=== PATIENT | male | born 1985 | race Hispanic/Latino ===

== ENCOUNTER 2019-12-09 04:37 | Emergency (ER) | payer OTHER ==
[~2019-12-09] VITALS: Ht 177.8 cm; Wt 124.7 kg
--- OUTSIDE RECORDS SUMMARY | 2019-12-09 04:39 | XMS REPORT ---
[facility] Address Unknown Phone Unavailable Care Team Providers Care Billing And Insurance Coordinator Name Role Phone Unavailable Unavailable Payers Payer Name Policy Type Policy Number Effective Date Expiration Date Problems This patient has no known problems. Allergies, Adverse Reactions, Alerts Allergy Name Allergy Type Status Severity Reaction(s) Onset Date Inactive Date Treating Clinician Comments No Known Allergies DA Active U 2019-12-05 00:00:00 No Known Allergies DA Active U 2019-04-01 00:00:00 No Known Allergies DA Active U 2015-04-04 00:00:00 Medications This patient has no known medications. Encounters Start Date/Time End Date/Time Encounter Type Admission Type Attending [facility] Care Department Encounter ID 2019-07-02 15:01:00 2019-07-02 15:01:00 Emergency E MHSE MHSE [id number] 2019-05-29 23:20:00 2019-05-29 23:20:00 Emergency E SE SE 7505 Results Test Description Test Time Test Comments Text Results Atomic Results Result Comments GLUBED 2019-12-05 18:27:00 GLUBED (test code=GLUBED) 75 MG/DL 70-110 Performed by certified linter operator at [facility] BASIC METABOLIC [id number] 15:46:00* Test Item Value Reference Range Comments SODIUM (test code=NA) 135 mEq/L 134-147 POTASSIUM (test code=K) 5.4 mEq/L 3.4-5.0 SPECIMEN SLIGHTLY HEMOLYZED.Results known to be adversely affected by hemolysis are: Potassium Magnesium LDH Phosphorus CHLORIDE (test code=CL) 105 mEq/L 100-108 CARBON DIOXIDE (test code=CO2) 27 mEq/L 21-33 ANION GAP (test code=GAP) 8 0-20 GLUCOSE (test code=GLU) 77 mg/dL 70-110 BLOOD UREA NITROGEN (test code=BUN) 16 mg/dL 7-18 GLOMERULAR FILTRATION RATE (test code=GFR) 86.6 105-110 Units of measure=ml/min/1.73 m2 CREATININE (test code=CREAT) 1.0 mg/dL 0.6-1.3 CALCIUM (test code=CA) 9.0 mg/dL 8.0-10.5 B-TYPE NATRIURETIC [id number] 15:12:00* Test Item Value Reference Range Comments B-TYPE NATRIURETIC PEPTIDE (test code=BNP) < 2.0 PG/ML 0-100 BASIC METABOLIC [id number] 14:51:00* Test Item Value Reference Range Comments SODIUM (test code=NA) 135 mEq/L 134-147 POTASSIUM (test code=K) 3.7 mEq/L 3.4-5.0 CHLORIDE (test code=CL) 104 mEq/L 100-108 CARBON DIOXIDE (test code=CO2) 25 mEq/L 21-33 ANION GAP (test code=GAP) 10 0-20 GLUCOSE (test code=GLU) 35 mg/dL 70-110 BLOOD UREA NITROGEN (test code=BUN) 16 mg/dL 7-18 GLOMERULAR FILTRATION RATE (test code=GFR) 77.6 105-110 Units of measure=ml/min/1.73 m2 CREATININE (test code=CREAT) 1.1 mg/dL 0.6-1.3 CALCIUM (test code=CA) 9.3 mg/dL 8.0-10.5 HEPATIC FUNCTION [id number] 14:51:00* Test Item Value Reference Range Comments TOTAL PROTEIN (test code=PROT) 8.3 g/dL 6.4-8.2 ALBUMIN (test code=ALB) 3.80 g/dL 3.4-5.0 BILIRUBIN TOTAL (test code=BILT) 0.5 MG/DL <1.5 BILIRUBIN DIRECT (test code=BILD) 0.20 MG/DL 0.0-0.30 BILIRUBIN INDIRECT (test code=BILIND) 0.30 MG/DL SGOT/AST (test code=AST) 48 IUnit/L 15-37 SGPT/ALT (test code=ALT) 30 IUnit/L 15-65 ALKALINE PHOSPHATASE TOTAL (test code=ALKP) 68 IUnit/L 20-125 [id number] 14:51:00* Test Item Value Reference Range Comments TROPONIN-I (test code=TROPI) < 0.015 ng/mL 0.000-0.045 Negative: <=0.045 Positive: >=0.046 Correlation with serial results, other cardiac markers andclinical findings is necessary to determine the clinicalsignificance of this result. Results using different methodologies should not be comparedto one another as quantitative results may vary by method. - DUP VEIN [id number] 14:47:00 Name: KERRIE ROGERS [facility] : 1985 Age/S: 34 / M [address] [place] [address] Unit #: [id number] Loc: [place] [address] Phys: Enma Cruz DO Acct: [id number] Dis Date: Status: REG ER PHONE #: [phone] Exam Date: 12/05/2019 [facility] FAX #: [phone] Reason: right leg edema/ pain EXAMS: CPT CODE: [id number] DUP VEIN UNI/LTD 10919 PROCEDURE: UNILATERAL LOWER EXTREMITY VENOUS ULTRASOUND INDICATION: right leg edema/ pain COMPARISON: There are no previous relevant studies available for correlation. TECHNIQUE: Sonographic evaluation of the right lower extremity veins was performed using high resolution B-mode, pulse and color Doppler imaging. FINDINGS: The common femoral, femoral, popliteal and visualized calf veins are patent. Normal venous waveforms. The saphenofemoral junction is unremarkable. Subcutaneous edema in the leg without focal fluid collection. IMPRESSION: No deep venous thrombosis. SL: [id number] at 1447 Reported and signed by: Chuy Clark M.D. CC: Enma Cruz DO; Ministerio Petty MD Technologist: Zehra Alexander Trnscb Date/Time: 12/05/2019 (1447) [email or web address] Orig Print D/T: S: 12/05/2019 (9238) Probe: PAGE 1 Signed Report CBC W/AUTO DIFF 2019-12-05 14:43:00* Test Item Value Reference Range Comments WHITE BLOOD CELL (test code=WBC) 13.00 x10 3/uL 4.5-11.0 RED BLOOD CELL (test code=RBC) 4.54 x10 6/uL 4.00-5.60 HEMOGLOBIN (test code=HGB) 12.6 g/dL 12.5-16.9 HEMATOCRIT (test code=HCT) 40.3 % 37.5-50.7 MEAN CELL VOLUME (test code=MCV) 88.8 fL 81.0-99.0 MEAN CELL HGB (test code=MCH) 27.8 pg 27.0-33.0 MEAN CELL HGB CONCETRATION (test code=MCHC) 31.3 g/dL 33.0-37.0 RED CELL DISTRIBUTION WIDTH CV (test code=RDW) 13.5 % 11.5-14.5 RED CELL DISTRIBUTION WIDTH SD (test code=RDW-SD) 44.2 fL 37.0-54.0 PLATELET COUNT (test code=PLT) 364 x10 3/uL 150-400 MEAN PLATELET VOLUME (test code=MPV) 11.0 fL 7.0-9.0 NEUTROPHIL % (test code=NT%) 74.4 % 56.0-77.0 IMMATURE GRANULOCYTE % (test code=IG%) 0.8 % 0.0-2.0 LYMPHOCYTE % (test code=LY%) 10.9 % 14.0-32.0 MONOCYTE % (test code=MO%) 6.6 % 4.8-9.0 EOSINOPHIL % (test code=EO%) 6.8 % 0.3-3.7 BASOPHIL % (test code=BA%) 0.5 % 0.0-2.0 NUCLEATED RBC % (test code=NRBC%) 0.0 % 0-0 NEUTROPHIL # (test code=NT#) 9.67 x10 3/uL 2.0-7.6 IMMATURE GRANULOCYTE # (test code=IG#) 0.11 x10 3/uL 0.00-0.03 LYMPHOCYTE # (test code=LY#) 1.42 x10 3/uL 1.0-3.8 MONOCYTE # (test code=MO#) 0.86 x10 3/uL 0.1-0.8 EOSINOPHIL # (test code=EO#) 0.88 x10 3/uL 0.0-0.2 BASOPHIL # (test code=BA#) 0.06 x10 3/uL 0.0-0.2 NUCLEATED RBC # (test code=NRBC#) 0.00 x10 3/uL 0.0-0.1 MANUAL DIFF REQUIRED (test code=MDIFF) NO - XR CHEST 1 [id number] 13:53:00 FAX: Enma Griffith DO [phone] [place]: St: [facility] FAX: Ministerio Schneider [facility] [phone] Name: KERRIE ROGERS [facility] : 1985 Age/S: 34/M [address] [place] [address] Unit #: [id number] Loc: [address] [address] Phys: Enma Cruz DO Acct: [id number] Dis Date: Status: REG ER PHONE #: [phone] Exam Date: 12/05/2019 1346 FAX #: [phone] Reason: SOB EXAMS: CPT CODE: [id number] XR CHEST 1 V 54786 PROCEDURE: CHEST SINGLE VIEW INDICATION: Shortness of breath COMPARISON: 11/10/2010 FINDINGS: AP portable chest obtained with patient semiupright. Assessment is suboptimal secondary to respiratory motion. Bilateral bronchial wall thickening with indistinct perihilar opacities likely accentuated by respiratory motion. No definite consolidation. The hemidiaphragms remain sharp. No pleural abnormality. The cardiomediastinal silhouette is normal for projection and low lung volumes. Skeleton is intact. IMPRESSION: Motion limited exam demonstrating bronchial wall thickening and indistinct perihilar opa cities. Edema and inflammation in the differential. SL: [id number] at 1353 Reported and signed by: Chuy Clark M.D. CC: Enma Cruz DO; Ministerio Petty MD Technologist: RT Manuel(R) Trnscrd Date/Time/By: 12/05/2019 (1400) : By: Chidi Orig Print D/T: S: 12/05/2019 (2405) PAGE 1 Signed Report - MRI LW JNT W/O CONT [id number] 07:47:00 FAX: Talib Caballero [phone] [place]: St: DEP FAX: Ministerio Singh [phone] Name: KERRIE ROGERS [facility] : 1985 Age/S: 34/M [address] [facility] Unit #: [id number] Loc: [place] [address] Phys: Talib Huynh MD Acct: [id number] Dis Date: Status: DEP CLI PHONE #: [phone] Exam Date: 07/05/2019 1733 FAX #: [phone] Reason: INJURY EXAMS: CPT CODE: [id number] MRI LW JNT W/[place] [address] HISTORY: s83.221a TECHNIQUE: Axial PD fat-sat, coronal PD fat-sat, coronal T1, sagittal PD fat-sat, sagittal T2, and sagittal 3 D gradient sequences of the right knee were acquired without IV contrast. Comparison x-ray 04/01/19. FINDINGS: No acute frac ture. Mild-moderate medial knee compartment articular cartilage thinning. Mild posterior tibial subchondral marrow edema. 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 Posterior cr uciate ligament is intact. Medial and lateral collateral ligament complexe s are intact. Bucket-handle tear of the medial meniscus with displ aced fragment in the intercondylar notch. Lateral meniscus is intact. No chondromalacia patellae. Quadriceps and patellar tendons are intact. Large joint effusion. Tiny Driscoll cyst. Included periarticu lar muscles and tendons are unremarkable. IMPRESSION: Bucket-handle tear of the medial meniscus with displaced fragment into intercondylar notch. Chronic anterior cruciate l igament tear with anterior translation of the tibia. M ild medial knee degenerative arthrosis. Large joint effusion. LOCATION: LP P AGE 3 Signed Report (CONTINUED) FAX: Talib Caballero [phone] [place]: St: [facility] FAX: Ministerio Randolph [facility] [phone] Name: KERRIE ROGERS [facility] : 1985 Age/S: 34/M [address] Unit #: [id number] Loc: V.[place], [place] [address] Phys: Talib Huynh MD Acct: [id number] Dis Date: Status: DEP CLI PHONE #: [phone] Exam Date: 07/05/20191732 FAX #: [phone] Reason: INJURY EXAMS: CPT CODE: [id number] MRI LW JNT W/[place] [address] <Continued> at 7471 Reported and signed by: Leeann Magallanes D.O. CC: Talib Huynh; Ministerio Singh Technologist: Andreas Alatorre)(MR) Trnscrd Date/Time/By: 07/06/2019 (0747) : By: [email or web address] Orig Print D/T: S: 07/06/2019 (0755) PAGE 2 Signed Report - XR L-SPINE 2/3 [id number] 21:32:00 FAX: Pari Pearson NP [place]: St: REG FAX: Ministerio Singh [phone] Name: KERRIE ROGERS [facility] : 1985 Age/S: 34/M [address] [facility] Unit #: [id number] Loc: [place] [address] Phys: Pari Pearson NP Acct: [id number] Dis Date: Status: REG ER PHONE #: [phone] Exam Date: 04/01/20192105 FAX #: [phone] Reason: fall, pain, swelling EXAMS: CPT CODE: [id number] XR L-SPINE 2/3 VIEWS 87846 REASON FOR EXAM: fall, pain, swelling EXAM ORDER DATE: 04/01/2019 8:35 PM Ordering Isaias: Pari Pearson NP PROCEDURE: - XR L-SPINE 2/3 VIEWS FINDI NGS: 3 views of the lumbar spine were obtained. There is normal alignment of the lumbar spine. The vertebral bodies are unremarkable in size and s hape. The disc spaces are maintained. No evidence of fracture. IMPRESSION: Unremarkable lumbar spine at 2132 Reported and elder d by: Yaw Mendoza M.D. CC: Pari Pearson NP; Ministerio Singh Technologist: CATALINO Nuñezrd Date/Time/By: 04/01/2019 (2131) : By: GavinL Orig Print D/T: S: 04/01/2019 (2134) PAGE 1 Signed Report - XR T-SPINE 3 [id number] 21:32:00 FAX: Pari Pearson NP [place]: St: REG FAX: Ministerio Singh [phone] Name: KERRIE ROGERS [facility] : 1985 Age/S: 34/M [address] [facility] Unit #: [id number] Loc: [place] [address] Phys: Pari Pearson NP Acct: [id number] Dis Date: Status: REG ER PHONE #: [phone] Exam Date: 04/01/20192105 FAX #: [phone] Reason: fall, pain EXAMS: CPT CODE: [id number] XR T-SPINE 3 VIEWS 72039 REASON FOR EXAM: fall, pain EXAM ORDER DATE: 04/01/2019 8:35 PM Ordering Isaias: Pari Pearson NP PROCEDURE: - XR T-SPINE 3 VIEWS FINDINGS: 3 views of the thoracic spine were obtained. There is normal alignment of the thoracic spine. The vertebral bodies are unremarkable in size and shape. The disc spaces are maintained. No evidence of fracture. IMPRESSION: Unremarkable thoracic spine at 2132 Reported and signed by: Yaw Mendoza M.D. CC: Pari Pearson NP; Ministerio Singhh Technologist: CATALINO Whyte Date/Time/By: 04/01/2019 (2131) : By: Jose G Orig Print D/T: S: 04/01/2019 (2134) PAGE 1 Signed Report - XR KNEE 4 + V [id number] 21:31:00 FAX: Pari Pearson NP [place]: St: REG FAX: Ministerio Singhh [phone] Name: KERRIE ROGERS [facility] : 1985 Age/S: 34/M [address] [facility] Unit #: [id number] Loc: [place] [address] Phys: Pari Pearson NP Acct: [id number] Dis Date: Status: REG ER PHONE #: [phone] Exam Date: 04/01/20192105 FAX #: [phone] Reason: fall, pain, swelling EXAMS: CPT CODE: [id number] XR KNEE 4 + V RT [address] REASON FOR EXAM: fall, pain, swelling EXAM ORDER DATE: 04/01/2019 8:35 PM Ordering Isaias: Pari Pearson NP PROCEDURE: - XR KNEE 4 + V RT FINDINGS: 4 views of the right knee were obtained. The osseous structures are unrem arkable in size and shape. The joint spaces are maintained. No evidence of fracture. No evidence of joint effusion. The patella is intact IMPRESSION: Unremarkable right knee at 213 Reported and elder d by: Yaw Mendoza M.D. CC: Pari Pearson NP; Ministerio Singh Technologist: CATALINO Whyte Date/Time/By: 04/01/2019 (2130) : By: Jose G Orig Print D/T: S: 04/01/2019 (7671) PAGE 1 Signed Report - MRI T-SPINE W W/O CONT 2019-03-01 15:45:00 FAX: Ministerio Singh [phone] [place]: St: PRE Name: KERRIE CROW [facility] : [birth year] Age/S: 34/M [address] [facility] Unit #: [id number] Loc: [place] [address] Phys: Ministerio Singh MD Acct: [id number] Dis Date: Status: PRE CLI PHONE #: [phone] Exam Date: 03/01/2019 1534 FAX #: [phone] Reason: EXAMS: CPT CODE: [id number] MRI T-SPINE W W/O CONT 98674 TECHNIQUE - MRI T-SPINE W W/O CONT . COMPARISON: None provided. HISTORY: 34 years Male FINDINGS: Bones: Marrow signal is age appropriate. No acute fractures. No suspicious focal lesion. Alignment: No subluxation. Intraspinal: Thoracic co rd normal in size and signal intensity. No mass. Interverteb ral discs and facet joints: There is mild posterior disc bulge at multip le levels of the thoracic spine. Mild endplate degenerative changes multi ple levels. Mild facet joint hypertrophy. Central canal and Neura l foramina: No stenosis. Soft tissues: No abnormalities. Other: No abnormal enhancement. IMPRESSION: No acute fractures. Mild spondylosis multiple levels of the thoracic spine. at 1 719 Reported and signed by: Ministerio Thibodeaux M.D. CC: Ministerio Randolph Technologist: Andreas Alatorre)(MR) Trnksrd Date/Time/By: 03/01/2019 (154 5) : By: [email or web address].JUSTINE Orig Print D/T: S: 03/01/2019 (1548) PAGE 1 Signed Report - MRI C-SPINE W/O [id number] 15:44:00 FAX: Ministerio Singh [phone] [place]: St: PRE Name: KERRIE CROW [facility] : [birth year] Age/S: 34/M [address] [facility] Unit #: [id number] Loc: [place] [address] Phys: Ministerio Singh MD Acct: [id number] Dis Date: Status: PRE CLI PHONE #: [phone] Exam Date: 03/01/2019 1533 FAX #: [phone] Reason: M50.10,M51.34,M54.1 EXAMS: CPT CODE: [id number] MRI C-SPINE W/O CONT 33673 TECHNIQUE - MRI C-SPINE W/O CONT . COMPARISON: None provided. HISTORY: 34 years Male M50.10,M51.34,M54.1 FINDINGS: Bones: Marrow signal is age appropriate. No acute fractures. No suspicious focal lesion. Alignment: No subluxation. Straightening of the cervical spine. Intraspinal: Cervical cord normal in size and sign al intensity. No mass. Cervical medullary junction: No abnor mality. Soft tissues: No abnormalities. Intervertebr al discs: C2-3: No posterior disc bulge. No central canal stenosis. No sharon ral foramen stenosis. Mild facet joint/uncovertebral joint hypertrophic changes. No impingement on the cervical cord. No impingement on the ex iting nerve roots. C3-4: No posterior disc bulge. No central canal stenosis. No neural foramen stenosis. Mild facet joint/uncovertebral joint hypertrophic changes. No impingement on the cervical cord. No impingement on the exiting nerve roots. C4-5: No posterior disc bulge. No central canal stenosis. No neural foramen stenosis. Mild facet joint/u ncovertebral joint hypertrophic changes. No impingement on the cervical co rd. No impingement on the exiting nerve roots. C5-6: No pos terior disc bulge. No central canal stenosis. No neural foramen stenosis. Mild facet joint/uncovertebral joint hypertrophic changes. No impingement on the cervical cord. No impingement on the exiting nerve roots. C6-7 : Mild posterior disc bulge. No central canal stenosis. No neural PAGE 1 Signed Report (CONTINUED) FAX: Ministerio Singh [phone] [place]: St: PRE Name: KERRIE LEIVA [facility] : 1985 A ge/S: 34/M [address] [facility] Unit #: [id number] Loc : [place] [address] Phys: Ministerio Singh MD Acct: [id number] Dis Date: Status: PRE CLI PHONE #: [phone] E xam Date: 03/01/2019 1533 FAX #: [phone] Reas on: M50.10,M51.34,M54.1 EXAMS: CPT CODE: [id number] MRI C-SPINE W/O CONT 69533 <Continued> foramen stenosis. Mild facet joint/uncovertebral joint hypertrophic changes. No impingement on the cervical cord. No impingement on the exiting nerve roots. C7-T1: Mild posterior disc bulge. No central canal stenosis. No neural foramen stenosis. Mild facet joint/uncovertebral joint hypertrophic changes. No impingement on the cervical cord. No impingement on the exiting nerve roots. IMPRESSION: Mild spondylosis multiple levels of the cervical spine. Most prominent C5/C6. No impingement on cervical cord. No impingement of exiting nerve roots. Straightening of the cervical spine. at 2193 Reported and signed by: Ministerio Thibodeaux M.D. CC: Ministerio Singh Technologist: Andreas Alatorre)(MR) Trnscrd Date/Time/By: 03/01/2019 (0921) : By: Mark Orig Print D/T: S: 03/01/2019 (4816) PAGE 2 Signed Report - MRI L-SPINE W/O CONT 2019-03-01 15:36:00 FAX: Ministerio Singh [phone] [place]: St: PRE Name: Amado SIMONSKERRIE ASHU [facility] : [birth year] Age/S: 34/M [address] [facility] Unit #: [id number] Loc: [place] [address] Phys: Ministerio Singh MD Acct: [id number] Dis Date: Status: PRE CLI PHONE #: [phone] Exam Date: 03/01/2019 1534 FAX #: [phone] Reason: EXAMS: CPT CODE: [id number] MRI L-SPINE W/O CONT 83502 TECHNIQUE - MRI L-SPINE W/O CONT . COMPARISON: None provided. HISTORY: 34 years Male FINDINGS: Bones: Marrow si gnal is age appropriate. No acute fractures. No suspicious focal lesion. Alignment: No subluxation. Intraspinal: Conus medulla ris normal in size and signal intensity. No mass. Soft tissu es: No abnormalities. Intervertebral discs: L1-2: No posterior disc bulge. No central canal stenosis. No neural foramen stenos is. No facet joint hypertrophic changes. No impingement on the traversing nerve roots. No impingement on the exiting nerve roots. L2-3 : No posterior disc bulge. No central canal stenosis. No neural foramen st enosis. Mild facet joint hypertrophic changes. No impingement on the trave rsing nerve roots. No impingement on the exiting nerve roots. L3-4: No posterior disc bulge. No central canal stenosis. No neural foramen stenosis. Mild facet joint hypertrophic changes. No impingement on the traversing nerve roots. No impingement on the exiting nerve roots. L4-5: Mild posterior disc bulge. Mild central canal génesis nosis. Mild neural foramen stenosis. Mild facet joint hypertrophic changes . No impingement on the traversing nerve roots. No impingement on the exiting nerve roots. PAGE 1 Signed Report (CONTINUED) FAX: Ministerio Singh [phone] [place]: St: PRE Name: KERRIE ROGERS [facility] : 1985 Age/S: 34/M [address] [facility] Unit #: [id number] Loc: [place] [address] Phys: Ministerio Singh MD Acct: [id number] Dis Date: Status: PRE CLI PHONE #: [phone] Exam Date: 03/01/2019 1534 FAX #: [phone] Reason: EXAMS: CPT CODE: [id number] MRI L-SPINE W/O CONT 28708 <Continued> L5-S1: Moderate posterior disc bulge. No central canal stenosis. No neural foramen stenosis. Mild facet joint hypertrophic changes. No impingement on the traversing nerve roots. No impingement on the exiting nerve roots. IMPRESSION: Mild spondylosis mult iple levels of the lumbar spine most prominent at L4/L5 and L5/S1. There is no impingement on exiting nerve roots or traversing nerve roots. at 1537 Reported and signed by: Ministerio Thibodeaux M.D. CC: Ministerio Singh Technologist: Andreas Alatorre)(MR) T rnscrd Date/Time/By: 03/01/2019 (3260) : By: Mark Orig Print D/T: S: 03/01/2019 (2962) PAGE 2 Sign ed Report
--- OUTSIDE RECORDS SUMMARY | 2019-12-09 04:39 | XMS REPORT | Summary of Care ---
Author Author [facility] Address Unknown Phone Unavailable Care Team Providers Care Pressure Dispatcher Name Role Phone Ministerio Singh PCP Reason for Visit * Reason Comments Refill Request Hydrocodone, Ketorolac and Methocarbamol Encounter Details Care Team Description Date Type Department Doctor Unassigned, [place] [address] [place] [id number] Refill Request (Hydrocodone, Ketorolac and Methocarbamol ) 09/06/2019 Refill [facility] [address] [place] [address] Allergies No Known Allergiesdocumented as of this encounter (statuses as of 09/06/2019) Medications End Date Status Medication Sig Dispensed Refills Start Date Active lisinopril Take 40 mg by 0 (PRINIVIL,ZESTRIL) 40 mg mouth daily. tablet Active pregabalin (LYRICA) 75 mg Take 75 mg by 0 capsule mouth 3 (three) times daily. Active SOMA 350 mg tablet TK 1 T PO TID 4 PRF SPASMS 9 Active amoxicillin 500 mg 0 capsule 9 Active Butalbital-Acetaminophen- TK ONE C PO Q 0 Caff 50-300-40 mg per 4 H PRF 9 capsule HEADACHES Active montelukast 10 mg tablet TK 1 T PO QHS 0 9 Active traMADol 50 mg tablet TK 1 T PO Q 3 6 H 9 Active zolpidem 10 mg tablet TK 1 T PO QD 5 HS 9 Active methocarbamol 750 mg Take 1 tablet 30 tablet 0 tabletIndications: by mouth 9 Complete tear of anterior every 8 cruciate ligament of (eight) hours right knee, initial as needed encounter (muscle spasms). Active HYDROcodone-acetaminophen Take 1 tablet 14 tablet 0 10-325 mg by mouth 0 tabletIndications: every 6 (six) Complete tear of anterior hours as cruciate ligament of needed for right knee, initial Pain (scale encounter 7-10) (alternate with tylenol). documented as of this encounter (statuses as of 09/06/2019) Active Problems Problem Noted Date Degeneration of lumbar or lumbosacral intervertebral disc 01/16/2016 Right lumbar radiculopathy 01/16/2016 Right-sided low back pain with right-sided sciatica 01/16/2016 documented as of this encounter (statuses as of 09/06/2019) Social History Date Tobacco Use Types Packs/Day Years Used Quit: 2013 Former Smoker Smokeless Tobacco: Never Used Drinks/Week oz/Week Comments Alcohol Use 0 Standard drinks or equivalent 0.0 Not Currently Sex Assigned at Date Recorded Not on file Industry Job Start Date Occupation Not on file Not on file Not on file Travel End Travel History Travel Start No recent travel history available. documented as of this encounter Last Filed Vital Signs Not on filedocumented in this encounter Plan of Treatment Care Team Description Date Type Specialty Uriel Sanchez MD [id number] [place] [address] [phone] Sarah Wall, PT 09/13/2019 Ancillary Visit Physical Therapy Health Maintenance Due Date Last Done Comments VARICELLA VACCINES (1 of 02/16/1988 2 - 2-dose childhood series) DTaP,Tdap,and Td Vaccines 1998 (1 - Tdap) INFLUENZA VACCINE (#1) 2019 PNEUMOCOCCAL 0-64 YEARS Aged Out No longer eligible based COMBINED SERIES on patient's age to complete this topic documented as of this encounter Implants Device Identifier Shelf Expiration Date Model / Serial / Lot Implanted Type Area Manufactur er 11/06/2021 [id number] / 0 [id number] Fastfix, Sanchez [employer] Nephew 360 Curved FAST-FIX Right: Knee Sanchez & Meniscal Repair #[id number] - S0 AB Nephew Implanted: Qty: 1 on 08/11/2019 by Lazaro Muro MD at [facility] 11/06/2021 [id number] / 0 [id number] Fastfix, Sanchez [employer]hew 360 Curved FAST-FIX Right: Knee Sanchez & Meniscal Repair #[id number] - S0 AB Nephew Implanted: Qty: 1 on 08/11/2019 by Lazaro Muro MD at [facility] 06/02/2022 [id number] / 0 / [id number] Fastfix, Sanchez [employer]hew 360 Curved FAST-FIX Right: Knee Sanchez & Meniscal Repair #[id number] - S0 AB Nephew Implanted: Qty: 1 on 08/11/2019 by Lazaro Muro MD at [facility] 06/07/2021 [id number] / 0 / [id number] Fastfix, [employer]hew 360 Curved FAST-FIX Right: Knee Sanchez & Meniscal Repair #[id number] - S0 AB Nephew Implanted: Qty: 1 on 08/11/2019 by Lazaro Muro MD at [facility] 11/06/2021 [id number] / 0 / [id number] Fastfix, [employer]hew 360 Curved FAST-FIX Right: Knee Sanchez & Meniscal Repair #[id number] - S0 AB Nephew Implanted: Qty: 1 on 08/11/2019 by Lazaro Muro MD at [facility] 05/24/2022 [id number] / 0 / [id number] Screw Biosure Regenesorb SCREW Right: Knee Sanchez & Interference 10x25 Mm Sanchez&Nephew Nephew Ref#[id number] Implanted: Qty: 1 on 08/11/2019 by Lazaro Muro MD at [facility] 07/23/2023 [id number] / 0 / [id number] Btb Tightrope Double Loaded Passing Right: Knee Ar[employer] Implanted: Qty: 1 on 08/11/2019 by Lazaro Muro MD at [facility] 10/26/2023 [id number] / 0 / [id number] Footprint Ultra Pk Suture [place] Right: Knee Sanchez & 4.5mm, Sl Nephew Implanted: Qty: 1 on 08/11/2019 by Lazaro Muro MD at [facility] documented as of this encounter Results Not on filedocumented in this encounter Visit Diagnoses Diagnosis Complete tear of anterior cruciate ligament of right knee, initial encounter documented in this encounter Insurance Type Payer Benefit Subscriber ID Effective Phone Address Plan / Dates Group Medicaid [employer] [place] xxxxxxxxx 2019-P PLAN - MANAGED MEDICAID STAR PLUS resent documented as of this encounter
--- OUTSIDE RECORDS SUMMARY | 2019-12-09 04:40 | XMS REPORT | Summary of Care ---
Author Author [facility] Organization [facility] Address Unknown Phone Unavailable Care Team Providers Care Combination Welder Apprentice Name Role Phone Ministerio Singh PCP Reason for Visit * Reason Comments DNKA Encounter Details Care Team Description Date Type Department Sarah Wall, PT DNKA 09/13/2019 Case Management [facility] [phone] Allergies No Known Allergiesdocumented as of this encounter (statuses as of 09/13/2019) Medications End Date Status Medication Sig Dispensed [...] as of this encounter (statuses as of 09/13/2019) Active Problems Problem Noted Date Degeneration of lumbar or lumbosacral intervertebral disc 01/16/2016 Right lumbar radiculopathy 01/16/2016 Right-sided low back pain with right-sided sciatica 01/16/2016 documented as of this encounter (statuses as of 09/13/2019) Social History Date Tobacco Use Types Packs/Day [...] Signs Not on filedocumented in this encounter Progress Notes * Sarah Wall, PT - 09/13/2019 2:05 PM STRING STUDIES DIRECTOR Mr. Tre Granados was a NO SHOW to his initial Physical Therapy Evaluation. Sarah Wall, PT, DPT,OCS 09/13/2019 2:06 PM Lic #: [id number] NG STUDIES DIRECTOR documented in this encounter Plan of Treatment Health Maintenance Due Date Last Done Comments [...] Lot Implanted Type Area Manufactur er 11/06/2021 [id number] / 0 04 Fastfix, Sanchez [employer]hew 360 Curved FAST-FIX Right: Knee Sanchez & Meniscal Repair #[id number] - S0 AB Nephew Implanted: Qty: 1 on 08/11/2019 by Lazaro Muro MD at [facility] 11/06/2021 [id number] / 0 04 Fastfix, Sanchez [employer] Nephew 360 Curved FAST-FIX Right: Knee Sanchez & Meniscal Repair #[id number] - S0 AB Nephew Implanted: Qty: 1 on 08/11/2019 by Lazaro Muro MD at [facility] 06/02/2022 [id number] / 0 / [id number] Fastfix, Sanchez [employer] Nephew 360 Curved FAST-FIX Right: Knee Sanchez & Meniscal Repair #[id number] - S0 AB Nephew Implanted: Qty: 1 on 08/11/2019 by Lazaro Muro MD at [facility] 06/07/2021 [id number] / 0 / [id number] Fastfix, Sanchez [employer]hew 360 Curved FAST-FIX Right: Knee Sanchez & Meniscal Repair #[id number] - S0 AB Nephew Implanted: Qty: 1 on 08/11/2019 by Lazaro Muro MD at [facility] 11/06/2021 [id number] / 0 / [id number] Fastfix, Sanchez [employer] Nephew 360 Curved FAST-FIX Right: Knee Sanchez & Meniscal Repair #[id number] - S0 AB Nephew Implanted: Qty: 1 on 08/11/2019 by Lazaro Muro MD at [facility] 05/24/2022 [id number] / 0 / [id number] Screw Biosure Regenesorb SCREW Right: Knee Sanchez & Interference 10x25 Mm Sanchez&Nephew Nephew Ref#[id number] Implanted: Qty: 1 on 08/11/2019 by Lazaro Muro MD at [facility] 07/23/2023 [id number] / 0 / [id number] Btb Tightrope Double Loaded Passing Right: Knee Ar[employer]rex [employer] Implanted: Qty: 1 on 08/11/2019 by Lazaro Muro MD at [facility] 10/26/2023 [id number] / 0 / [id number] Footprint Ultra Pk Suture [place] Right: Knee Sanchez & 4.5mm, Sl Nephew Implanted: Qty: 1 on 08/11/2019 by Lazaro Muro MD at [facility] documented as of this encounter Results Not on filedocumented in this encounter Insurance Type Payer Benefit Subscriber ID Effective Phone Address Plan / Dates Group Medicaid [employer] [place] xxxxxxxxx 2019-P PLAN - MANAGED MEDICAID STAR PLUS resent documented as of this encounter
--- OUTSIDE RECORDS SUMMARY | 2019-12-09 04:40 | XMS REPORT | Summary of Care ---
Author Author [facility] - [facility] Organization [facility] - [facility] Address Unknown Phone Unavailable Care Team Providers Care Rig Site Engineer Name Role Phone Ministerio Singh PCP Reason for Visit * Reason Comments Assessment Appointment Talk To Nurse Encounter Details Care Team Description Date Type Department Lazaor Muro MD [address] [place] [address] [place] [id number] Assessment; Appointment; Talk To Nurse 11/25/2019 [facility]phone [facility] [address], [address] [place] [address] Allergies No Known Allergiesdocumented as of this encounter (statuses as of 11/25/2019) Medications End Date Status Medication Sig Dispensed [...] as of this encounter (statuses as of 11/25/2019) Active Problems Problem Noted Date Degeneration of lumbar or lumbosacral intervertebral disc 01/16/2016 Right lumbar radiculopathy 01/16/2016 Right-sided low back pain with right-sided sciatica 01/16/2016 documented as of this encounter (statuses as of 11/25/2019) Social History Date Tobacco Use Types Packs/Day [...] filedocumented in this encounter Plan of Treatment Health [...] Lot Implanted Type Area Manufactur er 11/06/2021 [id number] / 0 04 Fastfix, Sanchez [employer] Nephew 360 Curved FAST-FIX Right: Knee Sanchez & Meniscal Repair #[id number] - S0 AB Nephew Implanted: Qty: 1 on 08/11/2019 by Lazaro Muro MD at [facility] 11/06/2021 [id number] / 0 04 Fastfix, Sanchez [employer] Nephew 360 Curved FAST-FIX Right: Knee Sanchez & Meniscal Repair #[id number] - S0 AB Nephew Implanted: Qty: 1 on 08/11/2019 by Lazaro Muro MD at [facility] 06/02/2022 [id number] / 0 / [id number] Fastfix, Sanchez [employer] Nephew 360 Curved FAST-FIX Right: Knee Sanchez & Meniscal Repair #[id number] - S0 AB Nephew Implanted: Qty: 1 on 08/11/2019 by Lazaro Muro MD at [facility] 06/07/2021 [id number] / 0 / [id number] Fastfix, Sanchez [employer] Nephew 360 Curved FAST-FIX Right: Knee Sanchez & Meniscal Repair #[id number] - S0 AB Nephew Implanted: Qty: 1 on 08/11/2019 by Lazaro Muro MD at [facility] 11/06/2021 [id number] / 0 / [id number] Fastfix, Sanchez [employer] Nephew 360 Curved FAST-FIX Right: Knee Sanchez & Meniscal Repair #[id number] - S0 AB Nephew Implanted: Qty: 1 on 08/11/2019 by Lazaro Muro MD at [facility] 05/24/2022 [id number] / 0 / [id number] Screw Biosure Regenesorb SCREW Right: Knee Sanchez & Interference 10x25 Mm Sanchez&Nephew Nephew Ref#[id number] Implanted: Qty: 1 on 08/11/2019 by Lazaro Muro MD at [facility] 07/23/2023 [id number] / 0 / [id number] Btb Tightrope Double Loaded Passing Right: Knee Ar[employer]rex [employer] Inc Implanted: Qty: 1 on 08/11/2019 by Lazaro Muro MD at [facility] 10/26/2023 [id number] / 0 / [id number] Footprint Ultra Pk Suture [place] Right: Knee Sanchez & 4.5mm, Sl Nephew Implanted: Qty: 1 on 08/11/2019 by Lazaro Muro MD at [facility] documented as of this encounter Results Not on filedocumented in this encounter Insurance Type Payer Benefit Subscriber ID Effective Phone Address Plan / Dates Group Medicaid [employer] [place] xxxxxxxxx 2019-P PLAN - MANAGED MEDICAID STAR PLUS resent documented as of this encounter
--- OUTSIDE RECORDS SUMMARY | 2019-12-09 04:40 | XMS REPORT | Summary of Care ---
Author Author [facility] - [facility] Organization [facility] - [facility] Address Unknown Phone Unavailable Care Team Providers Care French Teacher Name Role Phone Ministerio Singh PCP Reason for Visit * Reason Comments Refill Request Encounter Details Care Team Description Date Type Department Doctor Unassigned, [place] [address] [place] [address] Refill Request 08/13/2019 Refill [facility] [address] [place] [address] Allergies No Known Allergiesdocumented as of this encounter (statuses as of 09/22/2019) Medications End Date Status Medication Sig Dispensed [...] 1 T PO QD 5 HS 9 documented as of this encounter (statuses as of 09/22/2019) Active Problems Problem Noted Date Degeneration of lumbar or lumbosacral intervertebral disc 01/16/2016 Right lumbar radiculopathy 01/16/2016 Right-sided low back pain with right-sided sciatica 01/16/2016 documented as of this encounter (statuses as of 09/22/2019) Social History Date Tobacco Use Types Packs/Day [...] / Serial / Lot Implanted Type Area [facility] er 11/06/2021 [id number] / 0 / [id number] Fastfix, Sanchez [employer] Nephew 360 Curved FAST-FIX Right: Knee Sanchez & Meniscal Repair #[id number] - S0 AB Nephew Implanted: Qty: 1 on 08/11/2019 by Lazaro Muro MD at [facility] 11/06/2021 [id number] / 0 / [id number] Fastfix, Sanchez [employer] Nephew 360 Curved FAST-FIX Right: Knee Sanchez & Meniscal Repair #[id number] - S0 AB Nephew Implanted: Qty: 1 on 08/11/2019 by Lazaro Muro MD at [facility] 06/02/2022 [id number] / 0 / [id number] Fastfix, Sanchez [employer] Nephew 360 Curved FAST-FIX Right: Knee Sanchez & Meniscal Repair #[id number] - S0 AB Nephew Implanted: Qty: 1 on 08/11/2019 by Lazaro Muro MD at [facility] 06/07/2021 [id number] / 0 / [id number] Fastfix, Sanchez [employer] Nephew 360 Curved FAST-FIX Right: Knee Sanchez & Meniscal Repair #[id number] - S0 AB Nephew Implanted: Qty: 1 on 08/11/2019 by Lazaro Muro MD at [facility] 11/06/2021 [id number] / 0 / [id number] Fastfix, Sanchez [employer] Nephew 360 Curved FAST-FIX Right: Knee Sanchez & Meniscal Repair #[id number] - S0 AB Nephew Implanted: Qty: 1 on 08/11/2019 by Lazaro Muro MD at [facility] 05/24/2022 [id number] / 0 / [id number] Screw Biosure Regenesorb SCREW Right: Knee Sanchez & Interference 10x25 Mm Sanchez&Nephew Nephew Ref#[id number] Implanted: Qty: 1 on 08/11/2019 by Lazaro Muro MD at [facility] 07/23/2023 [id number] / 0 / [id number] Btb Tightrope Double Loaded Passing Right: Knee Ar[employer]rex [employer] Implanted: Qty: 1 on 08/11/2019 by Lazaro Muro MD at [facility] 10/26/2023 [id number] / 0 / [id number] Footprint Ultra Pk Suture [place] Right: Knee Sanchez & 4.5mm, Sl Nephew Implanted: Qty: 1 on 08/11/2019 by Lazaro Muro MD at [facility] documented as of this encounter Results Not [...]
[2019-12-09] MEDS ORDERED: KETOROLAC TROMETHAMINE 30 MG/ML VIAL IM STA (05:05)
== END 2019-12-09 05:55 | disposition home or self-care (01) ==
LOC: FSED 04:37
DX: L03.116 Cellulitis of left lower limb (principal); L03.115 Cellulitis of right lower limb; I10 Essential (primary) hypertension; J45.909 Unspecified asthma, uncomplicated; F17.210 Nicotine dependence, cigarettes, uncomplicated
CPT/HCPCS: 99282; J1885